=== PATIENT | female | born 1995 | race Caucasian/White ===

== ENCOUNTER 2018-04-15 07:28 | Inpatient (IN) | payer MEDICAID ==
[2018-04-15] MEDS ORDERED: ceFAZolin 2 GM in Premix Bag 1 BAG IV ONE (08:07)
[2018-04-15] MEDS ORDERED: Ondansetron 4 MG/2 ML SDV IVPUSH PRN (08:07)
[2018-04-15] MEDS ORDERED: Sodium Chloride 0.9% 10 ML Syringe FLUSH PRN (08:07)
[2018-04-15] MEDS ORDERED: Nalbuphine 20 MG/ML 1 ML Syringe IVPUSH PRN (08:07)
--- NOTE | 2018-04-15 08:09 | PCM.LDHP ---
L&D History of Present Illness - General Date of Service: 04/15/18 Admit Problem/Dx: Patient Status Order with Admit Dx/Problem 04/15/18 08:07 Patient Status [ADT] Routine Admission Diagnosis/Problem Admission Diagnosis/Problem Normal in third trimester Source of Information: Patient History Limitations: Reports: No Limitations - History of Present Illness Introduction:: Patient is a 23 y/o at 39 6/7 wks who presents for elective IOL. Doing well. No signs of labor since I last saw her. Good FM. No other concerns - Related Data Allergies/Adverse Reactions: Allergies Allergy/AdvReac Type Severity Reaction Status Date / Time penicillin G Allergy Rash Verified 05/04/15 01:02 Home Medications: Home Meds . [No Known Home Meds] 05/04/15 [History] Past Medical History [employer] History: Reports: : 2 Para: 1 LMP (Approximate): - Past Surgical History HEENT Surgical History: Reports: Adenoidectomy, Tonsillectomy GI Surgical History: Reports: Appendectomy Social & Family History - Tobacco Use Smoking Status *Q: Former Smoker - Alcohol Use Alcohol Use History: No - Recreational Drug Use Recreational Drug Use: No - Living Situation & Occupation Occupation: Employed H&P Review of Systems - Review of Systems: Review Of Systems: See Below General: Reports: No Symptoms HEENT: Reports: No Symptoms Pulmonary: Reports: No Symptoms Cardiovascular: Reports: No Symptoms Gastrointestinal: Reports: No Symptoms Genitourinary: Reports: No Symptoms Musculoskeletal: Reports: No Symptoms Skin: Reports: No Symptoms Neurological: Reports: No Symptoms L&D Exam - Exam Exam: See Below - OB Specific Contraction Intensity: Irritability Movement: Active Heart Tones: Present Heart Tones per Min: 145 Heart Rate (FHR) Variability: Moderate (6-25 bmp) Presentation: Vertex - Logan Score Logan Score Cervix Position: Posterior Logan Score Consistency: Soft Logan Score Effacement: >80% Logan Score Dilation: 3-4 cm Logan Score Infant's Station: -2 Logan Score Total: 8 - Exam General: Alert, Oriented, Cooperative Lungs: Clear to Auscultation, Normal Respiratory Effort Cardiovascular: Regular Rate, Regular Rhythm GI/Abdominal Exam: Soft, Non-Tender Genitourinary: Normal external exam Extremities: Normal Inspection Skin: Warm, Dry, Intact - Patient Data Result Diagrams: 04/15/18 05:57 - Problem List (1) 39 weeks gestation of SNOMED Code(s): 93533999 ICD Code: Z3A.39 - 39 WEEKS GESTATION OF Status: Acute Current Visit: Yes (2) Rubella non-immune status, antepartum SNOMED Code(s): 762591384 ICD Code: O99.89 - OTH DISEASES AND CONDITIONS COMPL PREG/CHLDBRTH; Z28.3 - UNDERIMMUNIZATION STATUS Status: Acute Current Visit: Yes (3) Rh negative state in antepartum period SNOMED Code(s): 701027612 ICD Code: O26.899 - OTH RELATED CONDITIONS, UNSPECIFIED TRIMESTER; Z67.91 - UNSPECIFIED BLOOD TYPE, RH NEGATIVE Status: Acute Current Visit: Yes (4) GBS carrier SNOMED Code(s): 9317054877907 ICD Code: Z22.330 - CARRIER OF GROUP B STREPTOCOCCUS Status: Acute Current Visit: Yes Problem List Initiated/Reviewed/Updated: Yes Orders Last 24hrs: Active Orders 24 hr Category Date Time Status Patient Status [ADT] Routine ADT 04/15/18 08:07 Ordered Activity as Tolerated [RC] PFP Care 04/15/18 08:07 Ordered Communication Order [RC] ASDIRECTED Care 04/15/18 08:07 Ordered Heart Tones [RC] ASDIRECTED Care 04/15/18 08:08 Ordered Non Stress Test [RC] PER UNIT ROUTINE Care 04/15/18 08:07 Ordered Notify Provider [RC] PFP Care 04/15/18 08:07 Ordered Notify Provider [RC] PRN Care 04/15/18 08:07 Ordered Peripheral IV Care [RC] . DIRECTED Care 04/15/18 08:08 Ordered Vital Signs [RC] PER UNIT ROUTINE Care 04/15/18 08:07 Ordered Regular Diet [DIET] Diet 04/15/18 Breakfast Ordered CBC W/O DIFF,HEMOGRAM [HEME] Routine Lab 04/15/18 08:07 Ordered RAPID PLASMA REAGIN,RPR [CHEM] Routine Lab 04/15/18 08:07 Ordered TYPE AND SCREEN [BBK] Routine Lab 04/15/18 08:07 Ordered Lactated Ringers [Ringers, Lactated] 1,000 ml Med 04/15/18 08:15 Ordered IV ASDIRECTED Nalbuphine [Nubain] Med 04/15/18 08:07 Ordered 10 mg IVPUSH Q2H PRN Ondansetron [Zofran] Med 04/15/18 08:07 Ordered 4 mg IVPUSH Q4H PRN Oxytocin/Lactated Ringers [Pitocin in LR 10 Units/1,000 Med 04/15/18 08:15 Ordered ML] 10 unit in 1,000 ml IV .CONTINUOUS Sodium Chloride 0.9% [Saline Flush] Med 04/15/18 08:07 Ordered 10 ml FLUSH ASDIRECTED PRN ceFAZolin [Ancef] 1 gm Med 04/15/18 14:00 Ordered Premix Bag 1 bag IV Q8HR ceFAZolin [Ancef] 2 gm Med 04/15/18 08:07 Ordered Premix Bag 1 bag IV ONETIME Electronic Heart Tones Ext w TOCO [WOMSER] Oth 04/15/18 08:07 Ordered Routine Electronic Heart Tones Internal [WOMSER] Per Unit Oth 04/15/18 08:07 Ordered Routine Peripheral IV Insertion Adult [OM.PC] Routine Oth 04/15/18 08:07 Ordered Resuscitation Status Routine Resus Stat 04/15/18 08:07 Ordered Assessment/Plan Comment:: 23 y/o at 39 6/7 wks presents for elective IOL * Labs * Ancef for GBS prophylaxis * Pitocin with eventual AROM for IOL * Pain management per patient preference * Anticipate * Will assess baby blood type following delivery to determine if additional rhogam required
[2018-04-15] MEDS ORDERED: Oxytocin/Lactated Ringers 10 UNIT/1,000 ML BAG IV SCH ×2 (08:15→10:45)
[2018-04-15] MEDS: Lactated Ringers 1,000 ML IV SCH ×3 (08:44→15:21)
[2018-04-15] MEDS ORDERED: ePHEDrine 50 MG/ML SDV IVPUSH PRN (14:59)
[2018-04-15] MEDS ORDERED: fentaNYL 100 MCG/2 ML SDV EPIDUR PRN (14:59)
[2018-04-15] MEDS ORDERED: diphenhydrAMINE 50 MG/ML SDV IVPUSH PRN (14:59)
[2018-04-15] MEDS ORDERED: fentaNYL/Bupivacaine-NS 2 MCG/ML-0.125%/PF 100 ML Bag EP SCH (15:00)
--- NOTE | 2018-04-15 15:28 | PCM.PREANE ---
Preanesthetic Assessment - Anesthesia/Transfusion/Family Hx Anesthesia History: Prior Anesthesia Without Reaction Family History of Anesthesia Reaction: No Transfusion History: Prior Transfusion Without Reaction - Review of Systems General: No Symptoms Pulmonary: No Symptoms Cardiovascular: No Symptoms Gastrointestinal: Abdominal Pain (labor contractions) Neurological: No Symptoms Other: Reports: None - Physical Assessment Pulse: 96 O2 Sat by Pulse Oximetry: 96 Respiratory Rate: 16 Blood Pressure: 129/83 Temperature: 37.7 C Vital Signs: Last Vital Signs Temp 37.7 C 04/15/18 08:00 Pulse Resp 16 04/15/18 08:00 BP 129/83 04/15/18 08:00 Pulse Ox 96 04/15/18 08:00 Height: 1.57 m Weight: 69.4 kg ASA Class: 2 Mental Status: Alert & Oriented x3 Airway Class: Mallampati = 1 Dentition: Reports: Normal Dentition Thyro-Mental Finger Breadths: 3 Mouth Opening Finger Breadths: 3 ROM/Head Extension: Full Lungs: Clear to Auscultation, Normal Respiratory Effort Cardiovascular: Regular Rate, Regular Rhythm - Lab Values: Laboratory Last Values WBC 9.31 K/mm3 (3.98-10.04) 04/15/18 05:57 RBC 4.18 M/mm3 (3.98-5.22) 04/15/18 05:57 Hgb 10.3 gm/L (11.2-15.7) L 04/15/18 05:57 Hct 33.2 % (34.1-44.9) L 04/15/18 05:57 MCV 79.4 fl (79.4-94.8) 04/15/18 05:57 MCH 24.6 pg (25.6-32.2) L 04/15/18 05:57 MCHC 31.0 g/dl (32.2-35.5) L 04/15/18 05:57 RDW Std Deviation 41.8 fL (36.4-46.3) 04/15/18 05:57 Plt Count 274 K/mm3 (182-369) 04/15/18 05:57 MPV 10.9 fl (9.4-12.3) 04/15/18 05:57 Blood Type A NEGATIVE 04/15/18 05:57 Gel Antibody Screen Positive 04/15/18 05:57 - Allergies Allergies/Adverse Reactions: Allergies Allergy/AdvReac Type Severity Reaction Status Date / Time penicillin G Allergy Rash Verified 05/04/15 01:02 - Anesthesia Plan Pre-Op Medication Ordered: None - Acknowledgements Anesthesia Type Planned: Epidural Pt an Appropriate Candidate for the Planned Anesthesia: Yes Alternatives and Risks of Anesthesia Discussed w Pt/Guardian: Yes Pt/Guardian Understands and Agrees with Anesthesia Plan: Yes PreAnesthesia Questionnaire - Past Health History Medical/Surgical History: Denies Medical/Surgical History Gastrointestinal History: Reports: GERD Hematologic History: Reports: None Immunologic History: Reports: None Oncologic (Cancer) History: Reports: None - Past Surgical History HEENT Surgical History: Reports: Adenoidectomy, Tonsillectomy GI Surgical History: Reports: Appendectomy Oncologic Surgical History: Reports: None - SUBSTANCE USE Smoking Status *Q: Former Smoker Tobacco Use Within Last Twelve Months: Cigarettes Second Hand Smoke Exposure: No Recreational Drug Use History: No - HOME MEDS Home Medications: Home Meds . [No Known Home Meds] 05/04/15 [History] - CURRENT (IN HOUSE) MEDS Current Meds: Current Medications Diphenhydramine HCl (Benadryl) 25 mg IVPUSH Q6H PRN PRN Reason: Itching Ephedrine Sulfate (Ephedrine Sulfate) 5 mg IVPUSH ASDIRECTED PRN PRN Reason: HYPOTENTSION Fentanyl (Sublimaze) 100 mcg EPIDUR Q3H PRN PRN Reason: Pain Last Admin: 04/15/18 15:24 Dose: 100 mcg Fentanyl/Bupivacaine HCl (Uqwjxcvo-Nssuh-Oa 2 Mcg/Ml-0.125%) 100 ml EP ASDIRECTED SURESH Last Admin: 04/15/18 15:24 Dose: 100 ml Cefazolin Sodium/Dextrose 1 gm (/ Premix) 50 mls @ 100 mls/hr IV Q8H SURESH Lactated Ringer's (Ringers, Lactated) 1,000 mls @ 100 mls/hr IV ASDIRECTED SURESH Last Admin: 04/15/18 15:21 Dose: 100 mls/hr Oxytocin/Lactated Ringer's (Pitocin In Lr 10 Units/1,000 Ml) 10 unit in 1,000 mls @ 500 mls/hr IV .CONTINUOUS SURESH Oxytocin/Lactated Ringer's (Pitocin In Lr 10 Units/1,000 Ml) 10 unit in 1,000 mls @ 12 mls/hr IV TITRATE SURESH; Protocol Last Titration: 04/15/18 15:20 Dose: 0 munits/min, 0 mls/hr Nalbuphine HCl (Nubain) 10 mg IVPUSH Q2H PRN PRN Reason: pain Ondansetron HCl (Zofran) 4 mg IVPUSH Q4H PRN PRN Reason: Nausea/Vomiting Sodium Chloride (Saline Flush) 10 ml FLUSH ASDIRECTED PRN PRN Reason: Keep Vein Open Discontinued Medications Cefazolin Sodium/Dextrose 2 gm (/ Premix) 50 mls @ 100 mls/hr IV ONETIME ONE Stop: 04/15/18 08:36 Last Admin: 04/15/18 08:45 Dose: 100 mls/hr
[2018-04-15] MEDS ORDERED: ceFAZolin 1 GM in Premix Bag 1 BAG IV SCH (16:00)
--- NOTE | 2018-04-15 17:04 | PCM.DEL ---
L & D Note - General Info Date of Service: 04/15/18 - Delivery Note Labor: Induced by ARM, Induced by Oxytocin Delivery Outcome: Livebirth Infant Delivery Method: Spontaneous Vaginal Delivery-Single Infant Delivery Mode: Spontaneous Presentation: Left Occiput Anterior (CLARK) Nuchal Cord: Present (x2), Reduced Anesthesia Type: Epidural Amniotic Fluid Description: Clear Episiotomy Type: None Laceration: None Placenta: Intact, Spontaneous Cord: 3 Vessels Estimated Blood Loss: 200 Resuscitation Needed: Yes [place]: Bulb Syringe, Stimulated, Warmed, Moncure Used Delivery Comments (Free Text/Narrative):: Patient found to be complete and began pushing. With pushing effort head delivered from an CLARK presentation. Nuchal present x2 and reduced. With gentle downward traction the shoulders and body delivered. Infant placed on maternal abdomen. Cord clamped and cut. Cord blood obtained. Placenta allowed time to separate and expelled intact. Inspection of the perineum showed no lacerations - General Info Date of Service: 04/15/18 - Patient Data Weight - Most Recent: 69.4 kg - Problem List & Annotations (1) 39 weeks gestation of SNOMED Code(s): 34952675 Code(s): Z3A.39 - 39 WEEKS GESTATION OF Status: Acute Current Visit: Yes (2) GBS carrier SNOMED Code(s): 7160904537607 Code(s): Z22.330 - CARRIER OF GROUP B STREPTOCOCCUS Status: Acute Current Visit: Yes (3) Rh negative state in antepartum period SNOMED Code(s): 529616768 Code(s): O26.899 - OTH RELATED CONDITIONS, UNSPECIFIED TRIMESTER; Z67.91 - UNSPECIFIED BLOOD TYPE, RH NEGATIVE Status: Acute Current Visit: Yes (4) Rubella non-immune status, antepartum SNOMED Code(s): 005375592 Code(s): O99.89 - OTH DISEASES AND CONDITIONS COMPL PREG/CHLDBRTH; Z28.3 - UNDERIMMUNIZATION STATUS Status: Acute Current Visit: Yes (5) Vaginal delivery SNOMED Code(s): 396486454 Code(s): O80 - ENCOUNTER FOR FULL-TERM UNCOMPLICATED DELIVERY Status: Acute Current Visit: Yes - Problem List Review Problem List Initiated/Reviewed/Updated: Yes - My Orders Last 24 Hours: My Active Orders 04/15/18 05:57 ANTIBODY IDENTIFICATION [BBK] Routine TYPE AND SCREEN [BBK] Routine 04/15/18 08:07 Patient Status [ADT] Routine Activity as Tolerated [RC] PFP Communication Order [RC] ASDIRECTED Notify Provider [RC] PFP Notify Provider [RC] PRN Vital Signs [RC] PER UNIT ROUTINE Nalbuphine [Nubain] 10 mg IVPUSH Q2H PRN Ondansetron [Zofran] 4 mg IVPUSH Q4H PRN Sodium Chloride 0.9% [Saline Flush] 10 ml FLUSH ASDIRECTED PRN Electronic Heart Tones Ext w TOCO [WOMSER] Routine Electronic Heart Tones Internal [WOMSER] Per Unit Routine Peripheral IV Insertion Adult [OM.PC] Routine Resuscitation Status Routine 04/15/18 08:08 Heart Tones [RC] ASDIRECTED Peripheral IV Care [RC] . DIRECTED 04/15/18 08:15 Lactated Ringers [Ringers, Lactated] 1,000 ml IV ASDIRECTED Oxytocin/Lactated Ringers [Pitocin in LR 10 Units/1,000 ML] 10 unit in 1,000 ml IV .CONTINUOUS 04/15/18 10:45 Oxytocin/Lactated Ringers [Pitocin in LR 10 Units/1,000 ML] 10 unit in 1,000 ml IV TITRATE 04/15/18 16:00 ceFAZolin [Ancef] 1 gm Premix Bag 1 bag IV Q8H 04/15/18 Breakfast Regular Diet [DIET] 04/16/18 06:00 RAPID PLASMA REAGIN,RPR [CHEM] Routine - Assessment Assessment:: 23 y/o G2 now P2002 PPD#0 from at 39 6/7 wks - Plan Plan:: * Routine cares * Encourage bleeding * Will assess baby girl blood type * MMR prior to discharge * Discharge home in 1-2 days
[2018-04-15] MEDS ORDERED: Lanolin 100% Cream 7 GM Tube TOP PRN (17:46)
[2018-04-15] MEDS ORDERED: Docusate Sodium 100 MG Cap PO PRN (17:46)
[2018-04-15] MEDS ORDERED: Benzocaine/Menthol 20%-0.5% Spray 56 GM Canister TOP PRN (17:46)
[2018-04-15] MEDS ORDERED: Witch Hazel Medicated Pads 100/Jar TOP PRN (17:46)
[2018-04-15] MEDS ORDERED: Ibuprofen 600 MG Tab PO PRN (17:46)
[2018-04-15] MEDS ORDERED: Acetaminophen 325 MG Tab PO PRN (17:46)
[2018-04-15] MEDS ORDERED: Bupivacaine 0.25% 10 ML SDV ONE (22:00)
[2018-04-15] MEDS ORDERED: Lidocaine 1.5% with EPINEPHrine 1:200,000 5 ML Amp ONE (22:00)
--- NOTE | 2018-04-16 06:46 | PCM.PNPP ---
- General Info Date of Service: 04/16/18 Functional Status: Reports: Pain Controlled, Tolerating Diet, Ambulating, Urinating - Review of Systems General: Reports: No Symptoms Pulmonary: Reports: No Symptoms Cardiovascular: Reports: No Symptoms Gastrointestinal: Reports: No Symptoms Genitourinary: Reports: No Symptoms Musculoskeletal: Reports: No Symptoms Neurological: Reports: No Symptoms - Patient Data Vital Signs - Most Recent: Last Vital Signs Temp 36.7 C 04/16/18 03:00 Pulse 72 04/16/18 03:00 Resp 16 04/16/18 03:00 BP 125/79 04/16/18 03:00 Pulse Ox 99 04/16/18 03:00 Weight - Most Recent: 69.4 kg I&O - Last 24 Hours: Intake & Output 04/15/18 04/15/18 04/16/18 14:59 22:59 06:59 Intake Total 1100 Balance 1100 Lab Results - Last 24 Hours: Laboratory Results - last 24 hr 04/15/18 04/15/18 Range/Units 05:57 05:57 WBC 9.31 (3.98-10.04) K/mm3 RBC 4.18 (3.98-5.22) M/mm3 Hgb 10.3 L (11.2-15.7) gm/L Hct 33.2 L (34.1-44.9) % MCV 79.4 (79.4-94.8) fl MCH 24.6 L (25.6-32.2) pg MCHC 31.0 L (32.2-35.5) g/dl RDW Std Deviation 41.8 (36.4-46.3) fL Plt Count 274 (182-369) K/mm3 MPV 10.9 (9.4-12.3) fl Blood Type A NEGATIVE Gel Antibody Screen Positive Med Orders - Current: Current Medications Acetaminophen (Tylenol) 650 mg PO Q4H PRN PRN Reason: mild pain or fever Benzocaine/Menthol (Dermoplast Pain Relief [place]) 0 gm TOP ASDIRECTED PRN PRN Reason: Perineal Comfort Measure Docusate Sodium (Colace) 100 mg PO BID PRN PRN Reason: Constipation Emollient Ointment (Lansinoh Hpa) 0 gm TOP ASDIRECTED PRN PRN Reason: Sore Nipples Ibuprofen (Motrin) 600 mg PO Q6H PRN PRN Reason: Mild pain or fever Measles/Mumps/Rubella Vaccine Live (M-M-R Ii Vaccine) 0.5 ml SUBCUT .ONCE ONE Stop: 04/16/18 17:01 Lucía Gambino ([place]her[place]) 1 pad TOP ASDIRECTED PRN PRN Reason: Hemorrhoid pain Discontinued Medications Diphenhydramine HCl (Benadryl) 25 mg IVPUSH Q6H PRN PRN Reason: Itching Ephedrine Sulfate (Ephedrine Sulfate) 5 mg IVPUSH ASDIRECTED PRN PRN Reason: HYPOTENTSION Fentanyl (Sublimaze) 100 mcg EPIDUR Q3H PRN PRN Reason: Pain Last Admin: 04/15/18 15:24 Dose: 100 mcg Fentanyl/Bupivacaine HCl (Ywtejbkk-Mkhfn-Lg 2 Mcg/Ml-0.125%) 100 ml EP ASDIRECTED USRESH Last Admin: 04/15/18 15:24 Dose: 100 ml Cefazolin Sodium/Dextrose 2 gm (/ Premix) 50 mls @ 100 mls/hr IV ONETIME ONE Stop: 04/15/18 08:36 Last Admin: 04/15/18 08:45 Dose: 100 mls/hr Cefazolin Sodium/Dextrose 1 gm (/ Premix) 50 mls @ 100 mls/hr IV Q8H SURESH Last Admin: 04/15/18 15:45 Dose: 100 mls/hr Lactated Ringer's (Ringers, Lactated) 1,000 mls @ 100 mls/hr IV ASDIRECTED SURESH Last Admin: 04/15/18 15:21 Dose: 100 mls/hr Oxytocin/Lactated Ringer's (Pitocin In Lr 10 Units/1,000 Ml) 10 unit in 1,000 mls @ 500 mls/hr IV .CONTINUOUS SURESH Oxytocin/Lactated Ringer's (Pitocin In Lr 10 Units/1,000 Ml) 10 unit in 1,000 mls @ 12 mls/hr IV TITRATE SURESH; Protocol Last Titration: 04/15/18 15:20 Dose: 0 munits/min, 0 mls/hr Nalbuphine HCl (Nubain) 10 mg IVPUSH Q2H PRN PRN Reason: pain Ondansetron HCl (Zofran) 4 mg IVPUSH Q4H PRN PRN Reason: Nausea/Vomiting Sodium Chloride (Saline Flush) 10 ml FLUSH ASDIRECTED PRN PRN Reason: Keep Vein Open - Interaction Infant Disposition, : [place] in Room with Family Infant Interaction: Holding Infant Feeding: Breastfed ; Nursed Well Support Person: Significant Other - Recovery Exam Fundal Tone: Firm Fundal Level: 1 Fingerbreadths Below Umbilicus Fundal Placement: Midline Lochia Amount: Small Lochia Color: Rubra/Red Perineum Description: Intact, Minimal Bruising/Swelling Episiotomy/Laceration: None Bladder Status: Voiding Urinary Elimination: Voided Other Urinary Elimination, : will call when ready to get up - Exam General: Alert, Oriented, Cooperative GI/Abdominal Exam: Soft, Non-Tender Extremities: Normal Inspection Skin: Warm, Dry, Intact - Problem List & Annotations (1) 39 weeks gestation of SNOMED Code(s): 13425991 Code(s): Z3A.39 - 39 WEEKS GESTATION OF Status: Acute (2) GBS carrier SNOMED Code(s): 2739900174597 Code(s): Z22.330 - CARRIER OF GROUP B STREPTOCOCCUS Status: Acute (3) Rh negative state in antepartum period SNOMED Code(s): 923084319 Code(s): O26.899 - OTH RELATED CONDITIONS, UNSPECIFIED TRIMESTER; Z67.91 - UNSPECIFIED BLOOD TYPE, RH NEGATIVE Status: Acute (4) Rubella non-immune status, antepartum SNOMED Code(s): 936818420 Code(s): O99.89 - OTH DISEASES AND CONDITIONS COMPL PREG/CHLDBRTH; Z28.3 - UNDERIMMUNIZATION STATUS Status: Acute (5) Vaginal delivery SNOMED Code(s): 375907398 Code(s): O80 - ENCOUNTER FOR FULL-TERM UNCOMPLICATED DELIVERY Status: Acute - Problem List Review Problem List Initiated/Reviewed/Updated: Yes - My Orders Last 24 Hours: My Active Orders 04/15/18 05:57 ANTIBODY IDENTIFICATION [BBK] Routine TYPE AND SCREEN [BBK] Routine 04/15/18 08:07 Activity as Tolerated [RC] PFP Communication Order [RC] ASDIRECTED Notify Provider [RC] PFP Notify Provider [RC] PRN Resuscitation Status Routine 04/15/18 08:08 Heart Tones [RC] ASDIRECTED Peripheral IV Care [RC] . DIRECTED 04/15/18 17:46 Activity as Tolerated [RC] PER UNIT ROUTINE Vital Signs [RC] 21,03,09,15 Acetaminophen [Tylenol] 650 mg PO Q4H PRN Benzocaine/Menthol [Dermoplast Pain Relief [place]] See Dose Instructions TOP ASDIRECTED PRN Docusate Sodium [Colace] 100 mg PO BID PRN Ibuprofen [Motrin] 600 mg PO Q6H PRN Lanolin [Lansinoh HPA] See Dose Instructions TOP ASDIRECTED PRN Witch Maki [Tucks] 1 pad TOP ASDIRECTED PRN Assess Lochia [WOMSER] Per Unit Routine Assess Uterine Involution [WOMSER] Per Unit Routine Breast Pump [WOMSER] Per Unit Routine Heat Therapy [OM.PC] PRN Perineal Care [OM.PC] Per Unit Routine Peripheral IV Discontinue [OM.PC] Routine Sitz Bath [OM.PC] Per Unit Routine 04/15/18 19:34 Vaccines to be Administered [RC] PER UNIT ROUTINE 04/15/18 Dinner Regular Diet [DIET] 04/16/18 17:00 Measles, Mumps & Rubella [M-M-R II Vaccine] 0.5 ml SUBCUT .ONCE ONE 04/16/18 17:46 Heat Therapy [OM.PC] PRN - Assessment Assessment:: 23 y/o G2 now P2002 PPD#1 from at 39 6/7 wks - Plan Plan:: * Routine cares * Encourage bleeding * Baby blood type not reported in chart, states "pending", but per laboratory team baby is B negative. Ran out of reagent for other testing and why result not in computer per their explanation * MMR prior to discharge * Discharge home today
--- NOTE | 2018-04-16 06:48 | PCM.DCSUM1 ---
Discharge Summary - Discharge Data Discharge Date: 04/16/18 Discharge Disposition: Home, Self-Care 01 Condition: Good - Discharge Diagnosis/Problem(s) (1) 39 weeks gestation of SNOMED Code(s): 71793374 ICD Code: Z3A.39 - 39 WEEKS GESTATION OF Status: Acute (2) GBS carrier SNOMED Code(s): 1345921123259 ICD Code: Z22.330 - CARRIER OF GROUP B STREPTOCOCCUS Status: Acute (3) Rh negative state in antepartum period SNOMED Code(s): 931850185 ICD Code: O26.899 - OTH RELATED CONDITIONS, UNSPECIFIED TRIMESTER; Z67.91 - UNSPECIFIED BLOOD TYPE, RH NEGATIVE Status: Acute (4) Rubella non-immune status, antepartum SNOMED Code(s): 078334152 ICD Code: O99.89 - OTH DISEASES AND CONDITIONS COMPL PREG/CHLDBRTH; Z28.3 - UNDERIMMUNIZATION STATUS Status: Acute (5) Vaginal delivery SNOMED Code(s): 797758337 ICD Code: O80 - ENCOUNTER FOR FULL-TERM UNCOMPLICATED DELIVERY Status: Acute - Patient Summary/Data Complications: None Consults: None Recommended Follow-up Testing/Procedures: Follow up in 3 weeks for check Hospital Course: 23 y/o at 39 6/7 wks who presented for elective IOL. This was done with pitocin and AROM. She progressed well to complete dilation and underwent an uncomplicated . See delivery note. she did well and was discharged home on PPD#1 - Patient Instructions Diet: Regular Diet as Tolerated Activity: As Tolerated Activity, Other: Pelvic Rest for 6 weeks Driving: May Drive Today Showering/Bathing: May Shower Showering/Bathing, Other: May Bathe Notify Provider of: Fever, Increased Pain, Swelling and Redness, Nausea and/or Vomiting - Discharge Plan *PRESCRIPTION DRUG MONITORING PROGRAM REVIEWED*: Not Applicable *COPY OF PRESCRIPTION DRUG MONITORING REPORT IN PATIENT CINDY: Not Applicable Home Medications: Home Meds Docusate Sodium [Colace] 100 mg PO BID PRN cap 04/16/18 [Rx] Ibuprofen [Motrin] 600 mg PO Q6H PRN tablet 04/16/18 [Rx] Patient Handouts: Home Care Instructions for Mom, Tips for a Good Latch Referrals: Jacinda Godoy MD [Primary Care Provider] - (3 weeks for check) - Discharge Summary/Plan Comment DC Time >30 min.: No - Patient Data Vitals - Most Recent: Last Vital Signs Temp 36.7 C 04/16/18 03:00 Pulse 72 04/16/18 03:00 Resp 16 04/16/18 03:00 BP 125/79 04/16/18 03:00 Pulse Ox 99 04/16/18 03:00 Weight - Most Recent: 69.4 kg I&O - Last 24 hours: Intake & Output 04/15/18 04/15/18 04/16/18 14:59 22:59 06:59 Intake Total 1100 Balance 1100 Lab Results - Last 24 hrs: Laboratory Results - last 24 hr 04/15/18 04/15/18 Range/Units 05:57 05:57 WBC 9.31 (3.98-10.04) K/mm3 RBC 4.18 (3.98-5.22) M/mm3 Hgb 10.3 L (11.2-15.7) gm/L Hct 33.2 L (34.1-44.9) % MCV 79.4 (79.4-94.8) fl MCH 24.6 L (25.6-32.2) pg MCHC 31.0 L (32.2-35.5) g/dl RDW Std Deviation 41.8 (36.4-46.3) fL Plt Count 274 (182-369) K/mm3 MPV 10.9 (9.4-12.3) fl Blood Type A NEGATIVE Gel Antibody Screen Positive Med Orders - Current: Current Medications Acetaminophen (Tylenol) 650 mg PO Q4H PRN PRN Reason: mild pain or fever Benzocaine/Menthol (Dermoplast Pain Relief [place]) 0 gm TOP ASDIRECTED PRN PRN Reason: Perineal Comfort Measure Docusate Sodium (Colace) 100 mg PO BID PRN PRN Reason: Constipation Emollient Ointment (Lansinoh Hpa) 0 gm TOP ASDIRECTED PRN PRN Reason: Sore Nipples Ibuprofen (Motrin) 600 mg PO Q6H PRN PRN Reason: Mild pain or fever Measles/Mumps/Rubella Vaccine Live (M-M-R Ii Vaccine) 0.5 ml SUBCUT .ONCE ONE Stop: 04/16/18 17:01 Lucía Gambino ([facility]) 1 pad TOP ASDIRECTED PRN PRN Reason: Hemorrhoid pain Discontinued Medications Diphenhydramine HCl (Benadryl) 25 mg IVPUSH Q6H PRN PRN Reason: Itching Ephedrine Sulfate (Ephedrine Sulfate) 5 mg IVPUSH ASDIRECTED PRN PRN Reason: HYPOTENTSION Fentanyl (Sublimaze) 100 mcg EPIDUR Q3H PRN PRN Reason: Pain Last Admin: 04/15/18 15:24 Dose: 100 mcg Fentanyl/Bupivacaine HCl (Wtahmqgj-Uqrfl-Nd 2 Mcg/Ml-0.125%) 100 ml EP ASDIRECTED SURESH Last Admin: 04/15/18 15:24 Dose: 100 ml Cefazolin Sodium/Dextrose 2 gm (/ Premix) 50 mls @ 100 mls/hr IV ONETIME ONE Stop: 04/15/18 08:36 Last Admin: 04/15/18 08:45 Dose: 100 mls/hr Cefazolin Sodium/Dextrose 1 gm (/ Premix) 50 mls @ 100 mls/hr IV Q8H SURESH Last Admin: 04/15/18 15:45 Dose: 100 mls/hr Lactated Ringer's (Ringers, Lactated) 1,000 mls @ 100 mls/hr IV ASDIRECTED SURESH Last Admin: 04/15/18 15:21 Dose: 100 mls/hr Oxytocin/Lactated Ringer's (Pitocin In Lr 10 Units/1,000 Ml) 10 unit in 1,000 mls @ 500 mls/hr IV .CONTINUOUS SURESH Oxytocin/Lactated Ringer's (Pitocin In Lr 10 Units/1,000 Ml) 10 unit in 1,000 mls @ 12 mls/hr IV TITRATE SURESH; Protocol Last Titration: 04/15/18 15:20 Dose: 0 munits/min, 0 mls/hr Nalbuphine HCl (Nubain) 10 mg IVPUSH Q2H PRN PRN Reason: pain Ondansetron HCl (Zofran) 4 mg IVPUSH Q4H PRN PRN Reason: Nausea/Vomiting Sodium Chloride (Saline Flush) 10 ml FLUSH ASDIRECTED PRN PRN Reason: Keep Vein Open
--- NOTE | 2018-04-16 08:47 | PCM48HPAN ---
Post Anesthesia Note - EVALUATION WITHIN 48HRS OF ANESTHETIC Vital Signs in Normal Range: Yes Patient Participated in Evaluation: Yes Respiratory Function Stable: Yes Airway Patent: Yes Cardiovascular Function Stable: Yes Hydration Status Stable: Yes Pain Control Satisfactory: Yes Nausea and Vomiting Control Satisfactory: Yes Mental Status Recovered: Yes - COMMENTS/OBSERVATIONS Free Text/Narrative:: patient denied any post anesthesia complications
[2018-04-16 15:10] VITALS: BP 111/68
[2018-04-16] MEDS ORDERED: Measles, Mumps & Rubella Vaccine 0.5 ML SDV SUBCUT ONE (17:00)
== END 2018-04-16 17:30 | disposition home or self-care (01) | DRG 807 ==
LOC: JD.OB 07:28 → OBSVTOIN 16:49 → JD.OB 16:50
PROVIDERS: ADMIT Obstetrics & Gynecology; ATTEND Obstetrics & Gynecology
PROC: 10907ZC Drainage of Amniotic Fluid, Therapeutic from Products of Conception, Via Natural or Artificial Opening (ICD-10-PCS; principal; 2018-04-15)
PROC: 6A550ZT Pheresis of Cord Blood Stem Cells, Single (ICD-10-PCS; principal; 2018-04-15)
PROC: 3E033VJ Introduction of Other Hormone into Peripheral Vein, Percutaneous Approach (ICD-10-PCS; principal; 2018-04-15)
PROC: 10E0XZZ Delivery of Products of Conception, External Approach (ICD-10-PCS; principal; 2018-04-15)
PROC: 00HU33Z Insertion of Infusion Device into Spinal Canal, Percutaneous Approach (ICD-10-PCS; 2018-04-15)
PROC: 3E0R3BZ Introduction of Anesthetic Agent into Spinal Canal, Percutaneous Approach (ICD-10-PCS; 2018-04-15)
DX: O99.824 Streptococcus B carrier state complicating childbirth (principal); Z37.0 Single live birth; Z3A.39 39 weeks gestation of pregnancy; O69.81X0 Labor and delivery complicated by cord around neck, without compression, not applicable or unspecified; Z88.0 Allergy status to penicillin; Z87.891 Personal history of nicotine dependence
CPT/HCPCS: 36415; 51702; 59025; 85027; J0690; J2590; J3010; J3490; J7120

== ENCOUNTER 2021-02-12 00:06 | Emergency (ER) | payer MEDICAID ==
[2021-02-12 00:19] VITALS: BP 124/77; PULSE 73
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
== END 2021-02-12 01:08 | disposition home or self-care (01) ==
LOC: JD.ED 00:06
DX: S60.221A Contusion of right hand, initial encounter (principal); Z88.0 Allergy status to penicillin; Z87.891 Personal history of nicotine dependence; W22.09XA Striking against other stationary object, initial encounter
CPT/HCPCS: 73130-26-RT; 73130-RT; 99283-25